=== PATIENT | male | born 1990 | race Two or more races ===

== ENCOUNTER 2017-03-28 23:16 | Emergency (ER) | payer OTHER ==
[~2017-03-28 23:16] MED LIST: PREDNISONE10 M1 PO
[2017-03-29] MEDS ORDERED: MUPIROCIN22 G2 TP (01:26)
== END 2017-03-29 01:34 ==
LOC: EDMED 23:16
DX: L73.9 Follicular disorder, unspecified (principal); R59.1 Generalized enlarged lymph nodes